=== PATIENT | female | born 2000 | race Two or more races ===

== ENCOUNTER 2024-08-11 13:54 | Emergency (ER) | payer BC, MEDICAID, SELFPAY ==
[2024-08-11 14:27] VITALS: BP 128/77; PULSE 69; RESP 18; TEMP 36.6; O2SAT 98; BMI 27.4
--- NOTE | 2024-08-11 15:34 | ED.ANIMALBIT ---
HPI - Animal Bite General Chief Complaint: Animal Bite Stated Complaint: Dog bite, left hand Time Seen by Provider: 08/11/24 14:10 History of Present Illness HPI narrative: This 24-year-old female comes in with animal bites to her left arm and hand. She states that she was trying to mohit her cat outside and the neighbor's dog was also chasing the cat. The patient got in the middle of this encounter and states that she got bit by both the dog and the cat in her left arm. The neighbor's dog has been vaccinated but is not exactly Up To Date as the jewel hole finish opener states that she cannot afford vaccinations just now. Related Data Previous Rx's ?Medication ?Instructions ?Recorded amoxicillin 875 mg-potassium 1 tab PO BID #10 tabs 08/11/24 clavulanate 125 mg tablet Allergies Allergy/AdvReac Type Severity Reaction Status Date / Time No Known Drug Allergies Allergy Verified 08/11/24 14:33 Review of Systems Status of ROS: Reports: 10 or more systems reviewed and unremarkable except as noted in History and below Narrative: Constitutional: No fevers, no weight gain or loss. Eyes: No discharge. No vision changes. HENT: No congestion, no sore throat, no ear pain. Cardiovascular: No chest pain, no palpitations. Respiratory: No shortness of breath, no wheezes, no cough. Gastrointestinal: No abdominal pain, no vomiting, no diarrhea. Genitourinary: No dysuria, no hematuria. Musculoskeletal: Normal range of motion. Skin: No rashes, no pruritis. Neurological: No dizziness, weakness, sensory change, speech change. Endo/Heme/Allergies: No bruising or bleeding. No polydipsia. Pysch: no suicidality, no anxiety, no insomnia. All other systems reviewed and are negative. Exam Narrative: Exam Narrative: Constitutional: Well-developed, well-nourished, no acute distress. HEENT: Normocephalic, atraumatic. Neck: Normal range of motion. Nontender. Supple. Heart: Intact distal pulses. Lungs: No chest discomfort. No wheezes, rhonchi, or rales. Abdomen: Nontender. Back: Normal range of motion. Extremities: Normal range of motion. Left forearm and hand has a few puncture wounds and scratches. Skin: Intact. No rash. Warm. No erythema or pallor. Neurologic: No altered sensation. No weakness. Alert and oriented. Psychiatric: No suicidality. No anxiety or depression. No insomnia. Nursing notes and vitals signs are reviewed. Const: Vital Signs, click to edit/add: Vital Signs - 24 hr 08/11/24 14:27 Temperature 98 F Pulse Rate [Right Pulse Oximeter] 69 Respiratory Rate 18 Blood Pressure [Ri ght Upper Arm] 128/77 Pulse Oximetry 98 Oxygen Delivery Me thod Room Air Course Vital Signs Vital signs: Initial Vital Signs Temperature 98 F 08/11/24 14:27 Temperature Source Temporal Artery Scan 08/11/24 14:27 Pulse Rate 69 08/11/24 14:27 Pulse Rhythm Regular 08/11/24 14:27 Pulse Strength 3+ Normal 08/11/24 14:27 Respiratory Rate 18 08/11/24 14:27 Blood Pressure 128/77 08/11/24 14:27 Blood Pressure Mean 94 08/11/24 14:27 Blood Pressure Position Sitting 08/11/24 14:27 Pulse Oximetry 98 08/11/24 14:27 Oxygen Delivery Method Room Air 08/11/24 14:27 Vital Signs Temperature 98 F 08/11/24 14:27 Pulse Rate 69 08/11/24 14:27 Respiratory Rate 18 08/11/24 14:27 Blood Pressure 128/77 08/11/24 14:27 Pulse Oximetry 98 08/11/24 14:27 Oxygen Delivery Method Room Air 08/11/24 14:27 Temperature 98 F 08/11/24 14:27 Pulse Rate 69 08/11/24 14:27 Respiratory Rate 18 08/11/24 14:27 Blood Pressure 128/77 08/11/24 14:27 Pulse Oximetry 98 08/11/24 14:27 Oxygen Delivery Method Room Air 08/11/24 14:27 MDM - Animal Bite MDM Narrative Medical decision making narrative: This patient comes in with injury to her left arm as she became in between her cat and the neighbor's dog. She has injuries from both animals she says. She is uncertain which are which. She has 1 puncture wound at the base of her hand on the ulnar aspect. There are some scratches on her forearm. None of these wounds are needing cleansing or repair. There is a risk of infection from the cat bites so a prescription for Augmentin is provided. The neighbor's dog can be observed and has been vaccinated in the past but is a bit out of date. The risk for rabies infection is negligent for her, but I advised her to observe the neighbor's dog. Discharge Plan Discharge Clinical Impression: Bite by animal Patient Disposition: Home, Self-Care Condition: Stable Additional Instructions: Take medication as prescribed. Follow up with MD return if worsening. Prescriptions: New amoxicillin-pot clavulanate 875-125 mg tablet 1 tab PO BID Qty: 10 0RF Stand Alone Forms: [email or web address] Info Instructions
[2024-08-11] MEDS: TETANUS/DIPHTH/PERTUSSIS 0.5 ML SYRINGE IM (15:53)
--- OUTSIDE RECORDS SUMMARY | 2024-08-11 15:56 | XMS_ITS | Clinical Summary ---
Author Organization [facility] Address [address] [place] [address] Care Team Providers Care Laboratory Equipment Installer Name Role Phone Pcp, Rad Costa MD Primary Care Provider [phone] Source Comments You are receiving this document as you are listed as the primary care provider,follow-up provider, or the patient has been referred to you for consultation.This is in compliance with the Medicare and[employer] EHR Incentive Program,which states Providers who transition their patient to another setting of careor provider of care or refers their patient to another provider of care shouldprovide summary care record for each transition of care or referral. [facility] Allergies No known active allergies Medications vitamin-ferrous fumarate-folic acid (PRENATALPLUS) 27-1 MG tablet Take 1 Tablet by mouth daily. Active Active Problems Problem Noted Date Diagnosed Date Vaginal bleeding in 07/06/2022 Overview (07/06/2022): Suspected miscarriage Social History Tobacco Use Types Packs/Day Years Used Date Smoking Tobacco: Never Tobacco Cessation:Counseling Given: Not Answered Alcohol Use Standard Drinks/Week Comments Never 0 (1 standard drink = 0.6 oz pur e alcohol) Humiliation, Afraid, Rape, and Kick questionnair e Answer Date Recorded Fear of Current or Ex-Partner Not on file Emotionally Abused Not on file 06/22/2023 Within the last year, have y ou been kicked, hit, slapped, or otherwise physically hurt by your partner or ex-partner? No 06/22/2023 Within the last year, have y ou been raped or forced to have any kind of sexual activity by your partner or ex-partner? No 06/22/2023 PHQ-2 Answer Date Recorded PHQ-2 Score 0 06/23/2023 Comments No Sex and Gender Information Value Date Recorded Sex Assigned at Not on file Legal Sex Female 11:52 AM DIRECTOR OF CLINICAL SERVICES Gender Identity Not on file Sexual Orientation Not on file Last Filed Vital Signs Vital Sign Reading Time Taken Comments Blood Pressure 114/62 06/23/2023 9:59 AM DIRECTOR OF CLINICAL SERVICES Pulse 71 06/23/2023 9:59 AM DIRECTOR OF CLINICAL SERVICES Temperature 36 C (96.8 F) 06/23/2023 9:59 AM DIRECTOR OF CLINICAL SERVICES Respiratory Rate 14 06/22/2023 11:1 7 PM DIRECTOR OF CLINICAL SERVICES Oxygen Saturation 97% 06/22/2023 11: 12 PM DIRECTOR OF CLINICAL SERVICES Inhaled Oxygen Concentration - - Weight 82.3 kg (181 lb 6.4 oz) 06/23/19 9:59 AM DIRECTOR OF CLINICAL SERVICES Height 157.5 cm (5' 2) 06/23/2023 9:5 9 AM DIRECTOR OF CLINICAL SERVICES pt reported Body Mass Index 33.18 06/23/2023 9:59 AM DIRECTOR OF CLINICAL SERVICES Plan of Treatment Health Maintenance Due Date Last Done Comments Cervical Cancer Screening Due 2000 Chlamydia 2000 Tuberculosis Screening 2000 Hep B Screening ([facility]) 2001 HPV Vaccine (1 - 3-dose series) 2015 HIV Screening (Preventive Services) 2016 Adult Preventive Visit 2018 DTaP/Tdap/Td (1 - Tdap) 2019 HepB (1) 2019 COVID-19 Vaccine ( - 2023-2 5 season) 2024 Influenza (#1) 2024 Zoster/Shingles (1 of 2) 2050 Hep C Screening (Preventive Services) Completed 06/23/2023, 06/23/2023 HepA Aged Out No longer eligi ble based on patient's age to complete this topic Hib Aged Out No longer eligi ble based on patient's age to complete this topic IPV (Polio) Aged Out No longer eligi ble based on patient's age to complete this topic MCV4 Aged Out No longer eligi ble based on patient's age to complete this topic Meningococcal B Aged Out No longer el igible based on patient's age to complete this topic Pneumococcal Aged Out No longer eligi ble based on patient's age to complete this topic Procedures Procedure Name Priority Date/Time Associated Diagnosis Comments HEPATITIS C ANTIBODY, WITH REFLEX Routine 06/23/2023 11:10 AM DIRECTOR OF CLINICAL SERVICES Screening for hepatitis C declined from Last 3 Months or Most Recently Relevant to Health Maintenance Results * (ABNORMAL) Hepatitis C Antibody, with Reflex (06/23/2023 11:10 AM DIRECTOR OF CLINICAL SERVICES) Hepatitis C Antibody Positive (Reactive)( A) Negative (Non Reactive) 06/23/2023 4:11 PM DIRECTOR OF CLINICAL SERVICES [facility] Comment:Presumptive evidence of antibodies to HCV, suggesting current or past (resolved) infection. Hepatitis C Quantitative Testing has been Ordered and will identify current infection, if present. Blood Venipuncture / Unknown 06/23/2023 11:10 AM DIRECTOR OF CLINICAL SERVICES 06/23/2023 11:10 AM DIRECTOR OF CLINICAL SERVICES Cassi Marte MD LAB_1 Final Result [facility] [address] [phone] from Last 3 Months or Most Recently Relevant to Health Maintenance Insurance [facility] FED[employer]AL [facility] [employer] Care Teams Laboratory Equipment Installer Relationship Specialty Start Date End Date Pcp, [place] [address] PCP - General 07/03/22
--- OUTSIDE RECORDS SUMMARY | 2024-08-11 15:56 | XMS_ITS | Patient Health Record ---
Author Organization [facility] calles Billing Info Address [address] [place] [address] Care Team Providers Care Serology Teacher Name Role Phone YESI CONTRERAS DO Primary Care Provider Unavailab MEDARDO Pantoja Unavailable [phone] Reason For Referral No Information Plan Of Treatment No Information Insurance Providers Payer Name Payer Address Payer Phone Subscriber Number Group Number Insured Name Patient Relationship to Insured Coverage Start Date Coverage End Date [facility] [employer] [address] [place], [place] [id number] Yesi Saldana Natural Child - Insured has Financial Responsibility 0 0
--- OUTSIDE RECORDS SUMMARY | 2024-08-11 15:56 | XMS_ITS | Patient Health Record ---
Author Organization [facility] Address [address] [facility]. [address] [place], [place] [address] Care Team Providers Care Hoop Coiling Machine Operator Name Role Phone JohnathanSingh Primary Care Provider [phone] Allergies No Known Allergies Reason For Referral No Information Medications Medication SIG (Take, Route, Fr equency, Duration) Notes Start Date End Date Status Cephalexin 500 MG 1 capsule Orally Fou r times a day for 5 days Active DHA 200 MG 1 capsule with a mari l Orally Once a day for 30 day(s) Active Problems Problem Type SNOMED Code ICD Code Onset Dates Problem Status W/U Status Risk Notes Problem [id number] Hepatitis C antibody positive in blood (R76.8) Active confirmed Plan Of Treatment No Information Insurance Providers Payer Name Payer Address Payer Phone Subscriber Number Group Number Insured Name Patient Relationship to Insured Coverage Start Date Coverage End Date [facility] FED[employer]AL [address] [address] [place] [phone] [id number] César Stafford Child - Insured does not have Financial Responsibility (includes legally adopted child) 0 Medical (General) History Surgical History Surgery Date(Month/Year)
--- OUTSIDE RECORDS SUMMARY | 2024-08-11 15:56 | XMS_ITS | Clinical Summary ---
Author Organization [facility] Address [address] [place] [address] Care Team Providers Care Department Assistant Name Role Phone Elsewhere, Pcp Primary Care Provider Unavailabl e Source Comments Patient records contain information from all sites at [facility]. For routine questions regarding patient records, call [phone] during business hours, M-F 8:00 AM - 5:00 PM Central Time. Record requests for emergency care only can be directed to [phone] at any time.[facility] Allergies No known active allergies Medications * This document contains information received from the source organization and may not represent a complete record from that organization. cholecalciferol (cholecalcifero l) 10 mcg (400 Unit) tablet Take 10 mcg by mouth daily. Active magnesium 200 mg tablet Take 400 mg by mouth every morning before breakfast. Active cyclobenzaprine (FLEXERIL) 10 mg tablet Take 1 tablet (10 mg total) by mouth 3 (three) times a day as needed for muscle spasms for up to 10 doses. 10 tablet 10/07/2020 Active Active Problems No known active problems Encounters Date Type Department Care Team Description 06/06/2024 10:12 PM SHOP DIRECTOR - 06/06/2024 10:42 PM [facility] [place] [facility] [address] [place] [address] Vic Claire M.D. Urinary Tract Infection Site Not Specified (Primary Dx); Infection Upper Respiratory Discharge Disposition: Home or Self Care from Last 3 Months Social History Tobacco Use Types Packs/Day Years Used Date Smoking Tobacco: Never Smokeless Tobacco: Never Alcohol Use Standard Drinks/Week Comments Never 0 (1 standard drink = 0.6 oz pur e alcohol) Humiliation, Afraid, Rape, and Kick questionnair e Answer Date Recorded Within the last year, have y ou been afraid of your partner or ex-partner? No 09/18/2020 Within the last year, have y ou been humiliated or emotionally abused in other ways by your partner or ex-partner? No Within the last year, have y ou been kicked, hit, slapped, or otherwise physically hurt by your partner or ex-partner? No 09/18/2020 Within the last year, have y ou been raped or forced to have any kind of sexual activity by your partner or ex-partner? No 09/18/2020 Social Connection and Isolation Panel [NHANES] A nswer Date Recorded Frequency of Communication with Friends and Fami ly Not on file 09/18/2020 Frequency of Social Gatherings with Friends and Family Not on file 09/18/2020 Attends Alevism Services Not on file 09/18 Active Member of Clubs or Organizations Not on f ile 09/18/2020 Attends Club or Organization Meetings Not on adiel e 09/18/2020 Are you , , di vorced, , never , or living with a partner? Never 09/18/2020 AUDIT-C Answer Date Recorded Q1: How often do you have a drink containing alc ohol? Never 09/18/2020 Average Number of Drinks Not on file 021 Frequency of Binge Drinking Not on file 08/30 PHQ-2 Answer Date Recorded PHQ-2 Score 0 09/18/2020 Dental Answer Date Recorded Dental: Regular Dentist Unknown 08/02/19 21 Comments No Sex and Gender Information Value Date Recorded Sex Assigned at Not on file Legal Sex Female 7:48 AM SHOP DIRECTOR Gender Identity Not on file Sexual Orientation Not on file Last Filed Vital Signs Vital Sign Reading Time Taken Comments Blood Pressure 118/80 06/06/2024 10:05 PM SHOP DIRECTOR Pulse 88 06/06/2024 10:05 PM SHOP DIRECTOR Temperature 37.4 C (99.3 F) 06/06/2024 10:05 PM SHOP DIRECTOR Respiratory Rate 16 06/06/2024 10:4 1 PM SHOP DIRECTOR Oxygen Saturation 98% 06/06/2024 10: 05 PM SHOP DIRECTOR Inhaled Oxygen Concentration - - Weight 70.3 kg (154 lb 14.4 oz) 025 10:07 PM SHOP DIRECTOR Height 157.5 cm (5' 2) 10/07/2020 3:46 AM CDT Body Mass Index 28.33 10/07/2020 3:46 AM CDT Plan of Treatment Health Maintenance Due Date Last Done Comments Cervical/Vaginal Cancer Screening 2000 Chlamydia and Gonorrhea Screening 2000 HIV Screening 2000 Hepatitis C Screening 2000 HPV Vaccines (1 - 3-dose series) 2015 DTaP,Tdap,and Td Vaccines (1 - Tdap) 2019 Hepatitis B Vaccines (1 of 3 - 19+ 3-dose series) 2019 COVID-19 Vaccine ( - 2023-2 5 season) 2024 Influenza Vaccine (#1) 2024 Depression Screening (Annual PHQ-2) 05/31/2024 IPV Vaccines Aged Out No longer eligi ble based on patient's age to complete this topic Pneumococcal vaccine (0-49 years) Aged Out No longer eligible based on patient's age to complete this topic Procedures Procedure Name Priority Date/Time Associated Diagnosis Comments HC URINALYSIS AUTO W MICRO STAT 06/06/2024 10:15 PM SHOP DIRECTOR URINALYSIS WITH MICROSCOPIC IF INDICATED, U STAT 06/06/2024 10:15 PM SHOP DIRECTOR from Last 3 Months Results * (ABNORMAL) Urinalysis with Microscopic if Indicated: Urine, Midstream (06/06/2024 10:15 PM SHOP DIRECTOR) Source Urine, Urine, Midstream 06/06/2024 10:16 PM SHOP DIRECTOR NPRG Clarity Cloudy(A) Clear 06/06/2024 10:19 PM SHOP DIRECTOR NPRG Color Yellow 06/06/2024 10:19 PM SHOP DIRECTOR NPRG Comment: ----REFERENCE VALUE---- Colorless Yellow Beba Blood Moderate(A) Negative 06/06/2024 10:19 PM SHOP DIRECTOR NPRG Nitrite Negative Negative 06/06/2024 10:19 PM SHOP DIRECTOR NPRG Leukocyte Esterase Trace(A) Negative 06/06/2024 10:19 PM SHOP DIRECTOR NPRG Protein >=300(A) mg/dL 06/06/2024 10:19 PM SHOP DIRECTOR NPRG Comment: ----REFERENCE VALUE---- Negative Trace Glucose Negative Negative mg/dL 06/06/2024 10:19 PM SHOP DIRECTOR NPRG Ketones, QI(U) 15(A) Negative mg/dL 06/06/2024 10:19 PM SHOP DIRECTOR NPRG Bilirubin Negative Negative 06/06/2024 10:19 PM SHOP DIRECTOR NPRG pH 6.0 5.0 - 8.0 06/06/2024 10:19 PM SHOP DIRECTOR NPRG Specific [place] 1.020 1.001 - 1.035 06/06/2024 10:19 PM SHOP DIRECTOR NPRG Urobilinogen 0.2 0.2 - 1.0 mg/dL 06/06/2024 10:19 PM SHOP DIRECTOR NPRG Urine (Urine, Midstream) 06/06/2024 10:15 PM SHOP DIRECTOR 06/06/2024 10:16 PM SHOP DIRECTOR Vic Claire M.D. LAB URINE ORDERABLES Fin al Result [facility] [address] [place] [address], [facility] NPRG [place] [address] [place] [address] * (ABNORMAL) Microscopic Manual (06/06/2024 10:15 PM SHOP DIRECTOR) White Blood Cells 51-100(A) /hpf 06/06/2024 10:28 PM SHOP DIRECTOR NPRG Comment: ----REFERENCE VALUE---- Males: 0-3 Females: 0-10 Unknown: 0-10 Red Blood Cells 51-100(A) 0 - 2 /hpf 10:28 PM SHOP DIRECTOR NPRG Dysmorphic Red Blood Cells <=25 <=25 % 06/06/2024 10:28 PM SHOP DIRECTOR NPRG Squamous Cells Occ-3 /hpf 06/06/2024 10:28 PM SHOP DIRECTOR NPRG Bacteria Present(A) None Seen 06/06/2024 10:28 PM SHOP DIRECTOR NPRG Urine 06/06/2024 10:1 5 PM SHOP DIRECTOR 06/06/2024 10:16 PM SHOP DIRECTOR us Vic Claire M.D. LAB URINE ORDERABLES Fin al Result [facility] [address] [place] [address], [place] [facility] [address] [place] [address] from Last 3 Months Insurance [facility] Care Teams Department Assistant Relationship Specialty Start Date End Date Elsewhere, Pcp PCP - General Family Medicine 09/18/20
--- OUTSIDE RECORDS SUMMARY | 2024-08-11 15:57 | XMS_ITS | Patient Health Record ---
Author Organization [facility] Address [address] [place] [address] Care Team Providers Care Internet Sales Director Name Role Phone Provider, Outside Primary Care Provider [phone] Reason For Referral No Information Medications Medication SIG (Take, Route, Frequency, Duration) Notes Start Date End Date Status Rizatriptan Benzoate 10 MG 1 tablet Orally at onset of pain; may repeat once in 2hrs for continued pain; max of 2/24hrs or 4/wk for 30 days 04/04/2020 Active Vitamin D 50 MCG (1999) 2 tablet Orally Once a day Active Tazarotene 0.1 % 1 thin coat to affected area in the evening Externally Once a day for 30 days Approved by provider - see telephone encounter 11/13/2019 Active Adapalene-Benzoyl Peroxide 0.1-2.5 % as directed Externally QD for 30 days Approved by provider - see telephone encounter 05/30/2019 Active SulfaCleanse 8/4 8-4 % use as a wash to AA Externally QD for 30 days Approved by provider - see telephone encounter Active Adapalene-Benzoyl Peroxide 0.1-2.5 % apply directed ONCE DAILY Externally External for 45 Active diazePAM 2 MG 1 tablet Orally morning of MRI and again 30 minutes prior to MRI for 1 days 04/04/2020 Active Immunizations Vaccine Route Administration Date Status Comme nts DTaP (0-6yr) INFANRIX Unknown 01/08/2005 Administered DTaP (0-6yr) INFANRIX Unknown 03/10/2005 Administered DTaP (0-6yr) INFANRIX Unknown 05/12/2005 Administered DTaP (0-6yr) INFANRIX Unknown 07/13/2005 Administered Hib (PedvaxHIB) Unknown 03/10/2005 Administered Hib (PedvaxHIB) Unknown 07/13/2005 Administered Influenza Quad PF (6mos+) 2019 0.5ml syringes Unknown 03/29/2020 Refused Influenza Quad PF (6mos+) 2019 0.5ml syringes Unknown 05/14/2020 Refused IPV (Polio) Unknown 01/08/2005 Administered IPV (Polio) Unknown 03/10/2005 Administered IPV (Polio) Unknown 05/12/2005 Administered IPV (Polio) Unknown 07/13/2005 Administered Meningococcal (Menactra) (11yr - 55yr) MCV4 Unknown 12/23/2012 Administered Meningococcal (Menactra) (11yr - 55yr) MCV4 IM Intramuscular 07/13/2017 Administered MMR Unknown 01/08/2005 Administered MMR Unknown 05/12/2005 Administered Pneumococcal 13 (PCV13) Conjugate Vaccine ([id number]) Unknown 03/10/2005 Administered Tdap (Adacel or Boostrix) Unknown 12/21/2011 Administer ed Tdap (Adacel or Boostrix) IM Intramuscular 12/23/2012 Admi nistered Varicella BUDDY (Varivax) (Chicken Pox) Unknown 01/08/2005 Administered Varicella BUDDY (Varivax) (Chicken Pox) Unknown 11/08/2006 Administered zzHepA Unknown 07/13/2005 Administered zzHepA Unknown 11/08/2006 Administered zzHepB Unknown 01/08/2005 Administered zzHepB Unknown 03/10/2005 Administered zzHepB Unknown 11/08/2006 Administered Social History Tobacco Use: Social History Observation Description Date Details (start date - stop date) Never Smoker NA - NA Smoking Status: Question Answer Notes Patient is a never smoker Section Notes: No history of blistering sun burns1 history of extensive sun exposure1 occasional sun screen use1 denies ever using tanning beds1 Denies smoke exposure at home No history of blistering sun burns1 history of extensive sun exposure1 occasional sun screen use1 denies ever using tanning beds1 Denies smoke exposure at home No history of blistering sun burns1 history of extensive sun exposure1 occasional sun screen use1 denies ever using tanning beds1 Denies smoke exposure at home No history of blistering sun burns1 history of extensive sun exposure1 occasional sun screen use1 denies ever using tanning beds1 Denies smoke exposure at home No history of blistering sun burns1 history of extensive sun exposure1 occasional sun screen use1 denies ever using tanning beds1 Denies smoke exposure at home No history of blistering sun burns1 history of extensive sun exposure1 occasional sun screen use1 denies ever using tanning beds1 Denies smoke exposure at home No history of blistering sun burns1 history of extensive sun exposure1 occasional sun screen use1 denies ever using tanning beds1 Denies smoke exposure at home No history of blistering sun burns1 history of extensive sun exposure1 occasional sun screen use1 denies ever using tanning beds1 Denies smoke exposure at home Problems Problem Type SNOMED Code ICD Code Onset Dates Problem Status W/U Status Risk Notes Problem [id number] Environmental allergies (Z91.09) Active confirmed Problem [id number] Migraine without status migrainosus, not intractable, unspecified migraine type (G43.909) Active confirmed Plan Of Treatment No Information Medical (General) History Medical History History ICD Code acne Surgical History Surgery Date(Month/Year) wisdom teeth left arm surgery
== END 2024-08-11 16:08 | disposition home or self-care (01) ==
LOC: ED 15:54
PROVIDERS: Emergency Provider Emergency Medicine Emergency Medical Services
DX: S51.832A Puncture wound without foreign body of left forearm, initial encounter (principal); W54.0XXA Bitten by dog, initial encounter; Z23 Encounter for immunization
CPT/HCPCS: 90471; 90715; 99283; 99284